=== PATIENT | female | born 1990 | race Hispanic/Latino ===

== ENCOUNTER 2020-03-25 19:56 | Emergency (ER) | payer OTHER ==
[2020-03-25] MEDS ORDERED: Boostrix 0.5 ML (Tdap) VIAL ONE (20:56)
--- NOTE | 2020-03-25 21:08 | RAD ---
RIGHT KNEE: 03/25/20 Four views. HISTORY: Injury from dog bite. No osseous abnormality. No joint effusion. IMPRESSION: No acute findings. POS: [facility]
== END 2020-03-25 21:15 | disposition home or self-care (01) ==
LOC: MADERS 19:56
DX: S81.851A Open bite, right lower leg, initial encounter (principal); W54.0XXA Bitten by dog, initial encounter
CPT/HCPCS: 90471; 90715